=== PATIENT | male | born 1965 | race Caucasian/White ===

== ENCOUNTER 2017-08-03 14:08 | Observation (INO) | payer OTHER, MEDICARE ==
[2017-08-03] MEDS: NITROGLYCERIN 2% OINT 1 GM PACKET TOPICAL (14:47)
[2017-08-03] MEDS: ASPIRIN 81 MG CHEW TAB CHEW (14:48)
[2017-08-03 14:54] LABS: BASOPHIL # 0.1 TH/MM3 (0-0.2); BASOPHIL % 0.7 % (0.0-2.0); EOSINOPHIL # 0.1 TH/MM3 (0-0.4); EOSINOPHIL % 1.7 % (0.0-4.0); HEMATOCRIT 38.7 % (39.0-51.0); HEMO FLAGS DIFF FINAL; HEMOGLOBIN 12.9 GM/DL (13.0-17.0); LYMPH % 25.1 % (9.0-44.0); MEAN CELL VOLUME 84.3 FL (80.0-100.0); MEAN CORPUSCULAR HEMOGLOBIN 28.2 PG (27.0-34.0); MEAN CORPUSCULAR HGB CONC 33.4 % (32.0-36.0); MEAN PLATELET VOLUME 8.1 FL (7.0-11.0); MONO % 10.3 % (0.0-8.0); MONOCYTE # 0.8 TH/MM3 (0-0.9); NEUT % 62.2 % (16.0-70.0); PLATELET COUNT 159 TH/MM3 (150-450); RED BLOOD COUNT 4.59 MIL/MM3 (4.50-5.90); RED CELL DISTRIBUTION WIDTH 14.4 % (11.6-17.2); WHITE BLOOD COUNT 8.1 TH/MM3 (4.0-11.0)
[2017-08-03 15:02] LABS: APTT (PATIENT) 25.2 SEC (24.3-30.1); PROTHROMBIN TIME - PATIENT 10.6 SEC (9.8-11.6)
[2017-08-03 15:18] LABS: ANION GAP 10 MEQ/L (5-15); BICARBONATE 25.2 MEQ/L (21.0-32.0); BLOOD UREA NITROGEN 19 MG/DL (7-18); CALCIUM 8.8 MG/DL (8.5-10.1); CHLORIDE 99 MEQ/L (98-107); CREATININE 1.28 MG/DL (0.60-1.30); GLOMERULAR FILTRATION RATE 59 ML/MIN (>89); GLUCOSE,RANDOM 398 MG/DL (74-106); MAGNESIUM 1.9 MG/DL (1.5-2.5); POTASSIUM 4.4 MEQ/L (3.5-5.1); SODIUM (NA) 134 MEQ/L (136-145); TROPONIN I LESS THAN 0.02 NG/ML (0.02-0.05)
[2017-08-03 15:19] LABS: CREATINE KINASE 78 U/L (39-308)
[2017-08-03] MEDS: MORPHINE SULFATE 4 MG/ML INJ (16:43)
[2017-08-03] MEDS: MORPHINE SULFATE 4 MG/ML INJ IV PUSH (16:45)
[2017-08-03] MEDS ORDERED: SODIUM CHLORIDE 0.9% FLUSH 10 ML FLUSH IV FLUSH (17:00)
[2017-08-03] MEDS ORDERED: ALPRAZolam 0.25 MG TAB PO (17:00)
[2017-08-03] MEDS ORDERED: GLUCAGON 1 MG/ML VIAL OTHER (17:45)
[2017-08-03] MEDS ORDERED: DEXTROSE 50% IN WATER 50 ML VIAL(D50) IV PUSH (17:45)
[2017-08-03 17:54] LABS: TROPONIN I LESS THAN 0.02 NG/ML (0.02-0.05)
[2017-08-03] MEDS: NITROGLYCERIN-D5W 50 MG/250 ML 250 ML IV (19:40)
[2017-08-03] MEDS: MORPHINE SULFATE 8 MG/ML INJ IV PUSH ×2 (20:19→21:56)
[2017-08-03] MEDS: METOPROLOL TARTRATE 25 MG TAB PO (21:55)
[2017-08-03] MEDS: CYCLOBENZAPRINE HCL 10 MG TAB PO (21:55)
[2017-08-03] MEDS: TIROFIBAN INFUSION INJ 250 ML IV (21:55)
[2017-08-03] MEDS: SODIUM CHLORIDE 0.9% FLUSH 10 ML FLUSH IV FLUSH (21:57)
[2017-08-03] MEDS: INSULIN ASPART SUPPLEMENTAL SCALE SQ (21:59)
[2017-08-03] MEDS: INSULIN DETEMIR 100 UNITS/ML VIAL SQ (21:59)
[2017-08-03 22:45] LABS: TROPONIN I LESS THAN 0.02 NG/ML (0.02-0.05)
[2017-08-04] MEDS: MORPHINE SULFATE 8 MG/ML INJ IV PUSH ×5 (00:39→21:23)
[2017-08-04] MEDS: ACETAMINOPHEN 500 MG CPLT PO (04:24)
[2017-08-04] MEDS: TIROFIBAN INFUSION INJ 250 ML IV (06:28)
[2017-08-04 06:32] LABS: AUTOMATED NEUTROPHIL # 4.6 TH/MM3 (1.8-7.7); BASOPHIL % 0.4 % (0.0-2.0); EOSINOPHIL # 0.1 TH/MM3 (0-0.4); HEMATOCRIT 39.4 % (39.0-51.0); HEMO FLAGS DIFF FINAL; HEMOGLOBIN 13.1 GM/DL (13.0-17.0); LYMPH % 21.7 % (9.0-44.0); LYMPHOCYTE # 1.5 TH/MM3 (1.0-4.8); MEAN CELL VOLUME 85.9 FL (80.0-100.0); MEAN CORPUSCULAR HEMOGLOBIN 28.7 PG (27.0-34.0); MEAN CORPUSCULAR HGB CONC 33.4 % (32.0-36.0); MONO % 10.8 % (0.0-8.0); MONOCYTE # 0.8 TH/MM3 (0-0.9); NEUT % 65.1 % (16.0-70.0); PLATELET COUNT 138 TH/MM3 (150-450); RED BLOOD COUNT 4.59 MIL/MM3 (4.50-5.90); RED CELL DISTRIBUTION WIDTH 14.5 % (11.6-17.2); WHITE BLOOD COUNT 7.1 TH/MM3 (4.0-11.0)
[2017-08-04 07:07] LABS: ALBUMIN 3.3 GM/DL (3.4-5.0); ALKALINE PHOSPHATASE 101 U/L (45-117); ALT (GPT) 31 U/L (12-78); ANION GAP 8 MEQ/L (5-15); AST (GOT) 30 U/L (15-37); BICARBONATE 25.2 MEQ/L (21.0-32.0); BLOOD UREA NITROGEN 18 MG/DL (7-18); CALCIUM 8.6 MG/DL (8.5-10.1); CHLORIDE 103 MEQ/L (98-107); CHOLESTEROL 155 MG/DL (120-200); CHOLESTEROL/ HDL RATIO 3.51 RATIO; CREATININE 0.92 MG/DL (0.60-1.30); GLOMERULAR FILTRATION RATE 87 ML/MIN (>89); GLUCOSE,RANDOM 252 MG/DL (74-106); HDL CHOLESTEROL 44.1 MG/DL (40.0-60.0); LDL CHOLESTEROL 76 MG/DL (0-99); POTASSIUM 4.4 MEQ/L (3.5-5.1); SODIUM (NA) 136 MEQ/L (136-145); TOTAL BILIRUBIN ADULT 0.2 MG/DL (0.2-1.0); TOTAL PROTEIN 7.5 GM/DL (6.4-8.2); TRIGLYCERIDES 175 MG/DL (42-150)
[2017-08-04] MEDS ORDERED: SODIUM CHLOR 0.9% 1000 ML INJ 1,000 ML IV (07:30)
[2017-08-04] MEDS ORDERED: DIAZEPAM 10 MG TAB PO (07:30)
[2017-08-04] MEDS ORDERED: diphenhydrAMINE HCL 50 MG CAP PO (07:30)
[2017-08-04] MEDS ORDERED: MIDAZOLAM HCL 2 MG/2 ML VIAL IV PUSH (07:30)
[2017-08-04] MEDS: MIDAZOLAM HCL 2 MG/2 ML VIAL ×2 (07:58→08:14)
[2017-08-04] MEDS: NITROGLYCERIN INJ 5 ML (07:58)
[2017-08-04] MEDS: HEPARIN SODIUM - IV 10,000 UNITS/10 ML VIAL (07:58)
[2017-08-04] MEDS: VERAPAMIL HCL 5 MG/2 ML VIAL (07:58)
[2017-08-04] MEDS: INSULIN ASPART SUPPLEMENTAL SCALE SQ ×4 (08:00→21:24)
[2017-08-04] MEDS: LIDOCAINE HCL 1% PF 30 ML VIAL (08:47)
[2017-08-04] MEDS: INSULIN DETEMIR 100 UNITS/ML VIAL SQ ×2 (09:00→21:24)
[2017-08-04] MEDS ORDERED: ASPIRIN 325 MG TAB PO (09:00)
[2017-08-04] MEDS: SODIUM CHLORIDE 0.9% FLUSH 10 ML FLUSH IV FLUSH ×2 (09:00→21:23)
[2017-08-04] MEDS ORDERED: SODIUM CHLOR 0.9% 250 ML INJ 250 ML IV (09:30)
[2017-08-04] MEDS ORDERED: ATROPINE SULFATE 1 MG/ML VIAL IV (09:30)
[2017-08-04] MEDS: METOPROLOL TARTRATE 25 MG TAB PO ×2 (09:55→21:23)
[2017-08-04] MEDS: LISINOPRIL 20 MG TAB PO (09:55)
[2017-08-04] MEDS: PRAVASTATIN SOD 40 MG TAB PO (09:55)
[2017-08-04] MEDS: CYCLOBENZAPRINE HCL 10 MG TAB PO ×3 (09:55→17:43)
[2017-08-04 15:58] LABS: HEMOGLOBIN A1C 10.1 % (4.3-6.0); HEMOGLOBIN A1a 1.9 %; HEMOGLOBIN A1b 2.4 %; HEMOGLOBIN Ao 77.6 %
[2017-08-05 07:06] LABS: ANION GAP 9 MEQ/L (5-15); BICARBONATE 27.2 MEQ/L (21.0-32.0); BLOOD UREA NITROGEN 25 MG/DL (7-18); CALCIUM 8.5 MG/DL (8.5-10.1); CHLORIDE 101 MEQ/L (98-107); CREATININE 0.95 MG/DL (0.60-1.30); GLOMERULAR FILTRATION RATE 84 ML/MIN (>89); GLUCOSE,RANDOM 217 MG/DL (74-106); POTASSIUM 4.2 MEQ/L (3.5-5.1); SODIUM (NA) 137 MEQ/L (136-145)
[2017-08-05] MEDS: SODIUM CHLOR 0.9% 1000 ML INJ 1,000 ML IV (08:49)
[2017-08-05] MEDS: HEPARIN-NS/PF FLUSH BAG 2,000 ML IV FLUSH (08:49)
[2017-08-05] MEDS: IOHEXOL 350 MG/ML 100 ML BTL (for Cath Lab) OTHER (08:49)
[2017-08-05] MEDS: INSULIN ASPART SUPPLEMENTAL SCALE SQ (08:58)
[2017-08-05] MEDS: SODIUM CHLORIDE 0.9% FLUSH 10 ML FLUSH IV FLUSH (08:58)
[2017-08-05] MEDS: CYCLOBENZAPRINE HCL 10 MG TAB PO (08:58)
[2017-08-05] MEDS: LISINOPRIL 20 MG TAB PO (08:59)
[2017-08-05] MEDS: METOPROLOL TARTRATE 25 MG TAB PO (08:59)
[2017-08-05] MEDS: RIVAROXABAN 20 MG TAB PO (08:59)
[2017-08-05] MEDS: PRAVASTATIN SOD 40 MG TAB PO (08:59)
[2017-08-05] MEDS: INSULIN DETEMIR 100 UNITS/ML VIAL SQ (09:00)
== END 2017-08-05 12:11 | disposition home or self-care (01) ==
LOC: NEPE 14:08 → NEDA 16:03 → HCIS 18:25
DX: I25.110 Atherosclerotic heart disease of native coronary artery with unstable angina pectoris (principal); I10 Essential (primary) hypertension; E11.65 Type 2 diabetes mellitus with hyperglycemia; E78.5 Hyperlipidemia, unspecified; I25.2 Old myocardial infarction; I69.354 Hemiplegia and hemiparesis following cerebral infarction affecting left non-dominant side; G89.29 Other chronic pain; Z79.01 Long term (current) use of anticoagulants; Z79.4 Long term (current) use of insulin; Z79.82 Long term (current) use of aspirin; Z79.899 Other long term (current) drug therapy; Z86.711 Personal history of pulmonary embolism; Z86.718 Personal history of other venous thrombosis and embolism; Z95.0 Presence of cardiac pacemaker; Z95.1 Presence of aortocoronary bypass graft; Z82.49 Family history of ischemic heart disease and other diseases of the circulatory system; Z81.1 Family history of alcohol abuse and dependence; Z80.8 Family history of malignant neoplasm of other organs or systems; Z81.3 Family history of other psychoactive substance abuse and dependence
CPT/HCPCS: 71046; 80048; 80053; 80061; 82550; 82948; 83036; 83735; 84484; 85025; 85610; 85730; 93005; 93306; 93458; 96372; 96374; 96376; 99152; 99153; 99285-25